=== PATIENT | female | born 1965 | race Caucasian/White ===

== ENCOUNTER → 2019-12-06 12:49 | Outpatient (CLI) | payer OTHER, SELFPAY ==
--- NOTE | 2019-12-06 12:56 | US_ITS ---
PROCEDURE: Ultrasound guided paracentesis. DATE OF EXAMINATION: December 06, 2019. INDICATION: Female, 54 years old. Ascites. PHYSICIAN: Fab Hankins M.D. TECHNIQUE: The risks, benefits, and alternatives to the procedure were explained to the patient. The specific risks of bleeding, infection, and damage to bowel were detailed and accepted. Witnessed informed consent was obtained. The abdomen was ultrasonographically surveyed. An appropriate pocket of fluid was identified at the right lower quadrant. The skin were cleaned and prepped in the usual sterile fashion. Using ultrasound guidance, the peritoneal cavity was accessed with a 5-Niuean paracentesis needle/catheter system. The trocar was removed. A total of 3750 ml of syd-colored fluid were removed from the peritoneal cavity. The catheter was removed and a sterile dressing was applied. The procedure was well tolerated. US/Paracentesis with US IMPRESSION: Ultrasound guided paracentesis. Electronically Signed: Fab Hankins, at 14:50 EST , Service support ,
[2019-12-06 13:32] LABS: International Normalized Ratio 1.3; Platelet Count 222 K/mm3 (150-450)
[2019-12-06 13:33] LABS: Partial Thromboplast Time 35.7 Seconds (24.1-36.2)
[2019-12-06 13:52] VITALS: BP 102/58; BP 103/72; PULSE 102; PULSE 98; PULSE 99; RESP 18; TEMP 36.9; TEMP 37; O2SAT 96; O2SAT 99
== END ==
PROVIDERS: PCP Nurse Practitioner; Referring Provider Internal Medicine Gastroenterology; Visit Provider Internal Medicine Gastroenterology
DX: R18.8 Other ascites (principal); K74.0 Hepatic fibrosis; K74.60 Unspecified cirrhosis of liver
CPT/HCPCS: 36415; 49083; 85049; 85610; 85730

== ENCOUNTER → 2019-12-28 12:02 | Outpatient (CLI) | payer OTHER, SELFPAY ==
--- NOTE | 2019-12-28 12:12 | US_ITS ---
PROCEDURE: Ultrasound guided paracentesis. DATE OF EXAMINATION: December 28, 2019.. INDICATION: Female, 54 years old. Ascites. PHYSICIAN: Fab Hankins M.D. TECHNIQUE: The risks, benefits, and alternatives to the procedure were explained to the patient. The specific risks of bleeding, infection, and damage to bowel were detailed and accepted. Witnessed informed consent was obtained. The abdomen was ultrasonographically surveyed. An appropriate pocket of fluid was identified at the right lower quadrant. The skin were cleaned and prepped in the usual sterile fashion. Using ultrasound guidance, the peritoneal cavity was accessed with a 5-Portuguese paracentesis needle/catheter system. The trocar was removed. A total of 4050 ml of yellow fluid were removed from the peritoneal cavity. The catheter was removed and a sterile dressing was applied. The procedure was well tolerated. US/Paracentesis with US IMPRESSION: Ultrasound guided paracentesis. Electronically Signed: Fab Hankins, at 13:15 EDT , Service support ,
[2019-12-28 12:45] VITALS: BP 115/7; BP 117/72; PULSE 105; PULSE 106; RESP 16; TEMP 37.1; O2SAT 97
== END ==
PROVIDERS: PCP Nurse Practitioner Primary Care; Referring Provider Internal Medicine Gastroenterology; Visit Provider Internal Medicine Gastroenterology
DX: R18.8 Other ascites (principal); K74.0 Hepatic fibrosis; K74.60 Unspecified cirrhosis of liver
CPT/HCPCS: 49083

== ENCOUNTER → 2020-01-07 13:42 | Outpatient (CLI) | payer OTHER, SELFPAY ==
--- NOTE | 2020-01-07 13:45 | US_ITS ---
PROCEDURE: Ultrasound guided paracentesis. DATE OF EXAMINATION: January 07, 2020. INDICATION: Female, 54 years old. Ascites. PHYSICIAN: Fab Hankins M.D. TECHNIQUE: The risks, benefits, and alternatives to the procedure were explained to the patient. The specific risks of bleeding, infection, and damage to bowel were detailed and accepted. Witnessed informed consent was obtained. The abdomen was ultrasonographically surveyed. An appropriate pocket of fluid was identified at the right lower quadrant. The skin were cleaned and prepped in the usual sterile fashion. Using ultrasound guidance, the peritoneal cavity was accessed with a 5-Khmer paracentesis needle/catheter system. The trocar was removed. A total of 3650 ml of syd-colored fluid were removed from the peritoneal cavity. The catheter was removed and a sterile dressing was applied. The procedure was well tolerated. US/Paracentesis with US IMPRESSION: Ultrasound guided paracentesis. Electronically Signed: Fab Hankisn, at 15:00 EDT , Service support ,
[2020-01-07 14:45] VITALS: BP 107/66; BP 112/67; BP 112/69; PULSE 107; PULSE 96; RESP 16; TEMP 37.6; O2SAT 100; O2SAT 95
== END ==
PROVIDERS: PCP Nurse Practitioner Primary Care; Referring Provider Internal Medicine Gastroenterology; Visit Provider Internal Medicine Gastroenterology
DX: K74.60 Unspecified cirrhosis of liver (principal); R18.8 Other ascites
CPT/HCPCS: 49083

== ENCOUNTER → 2020-01-28 14:23 | Outpatient (CLI) | payer OTHER, SELFPAY ==
--- NOTE | 2020-01-28 14:26 | US_ITS ---
PROCEDURE: Ultrasound guided paracentesis. DATE OF EXAMINATION: January 28, 2020.. INDICATION: Female, 54 years old. Ascites. PHYSICIAN: Fab Hankins M.D. TECHNIQUE: The risks, benefits, and alternatives to the procedure were explained to the patient. The specific risks of bleeding, infection, and damage to bowel were detailed and accepted. Witnessed informed consent was obtained. The abdomen was ultrasonographically surveyed. An appropriate pocket of fluid was identified at the right lower quadrant. The skin were cleaned and prepped in the usual sterile fashion. Using ultrasound guidance, the peritoneal cavity was accessed with a 5-Irish paracentesis needle/catheter system. The trocar was removed. A total of 5400 ml of syd-colored fluid were removed from the peritoneal cavity. The catheter was removed and a sterile dressing was applied. The procedure was well tolerated. US/Paracentesis with US IMPRESSION: Ultrasound guided paracentesis. Electronically Signed: Fab Hankins, at 15:35 EDT , Service support ,
[2020-01-28 14:50] VITALS: BP 110/70; BP 112/71; PULSE 100; PULSE 96; RESP 14; RESP 16; O2SAT 95; O2SAT 98
== END ==
PROVIDERS: PCP Nurse Practitioner Primary Care; Referring Provider Internal Medicine Gastroenterology; Visit Provider Internal Medicine Gastroenterology
DX: R18.8 Other ascites (principal); K74.60 Unspecified cirrhosis of liver
CPT/HCPCS: 49083

== ENCOUNTER → 2020-02-18 13:45 | Outpatient (CLI) | payer OTHER, SELFPAY ==
--- NOTE | 2020-02-18 13:48 | US_ITS ---
PROCEDURE: Ultrasound guided paracentesis. DATE OF EXAMINATION: February 18, 2020. INDICATION: Female, 54 years old. Ascites. PHYSICIAN: Fab Hankins M.D. TECHNIQUE: The risks, benefits, and alternatives to the procedure were explained to the patient. The specific risks of bleeding, infection, and damage to bowel were detailed and accepted. Witnessed informed consent was obtained. The abdomen was ultrasonographically surveyed. An appropriate pocket of fluid was identified at the right lower quadrant. The skin were cleaned and prepped in the usual sterile fashion. Using ultrasound guidance, the peritoneal cavity was accessed with a 5-Turkish paracentesis needle/catheter system. The trocar was removed. A total of 6950 ml of syd-colored fluid were removed from the peritoneal cavity. The catheter was removed and a sterile dressing was applied. The procedure was well tolerated. US/Paracentesis with US IMPRESSION: Ultrasound guided paracentesis. Electronically Signed: Fab Hankins, at 15:35 EDT , Service support ,
[2020-02-18 14:39] VITALS: BP 111/64; BP 120/64; BP 121/66; BP 124/66; PULSE 104; PULSE 96; PULSE 97; PULSE 98; RESP 16; RESP 18; TEMP 36.7; O2SAT 97; O2SAT 98
== END ==
PROVIDERS: PCP Nurse Practitioner Primary Care; Referring Provider Internal Medicine Gastroenterology; Visit Provider Internal Medicine Gastroenterology
DX: R18.8 Other ascites (principal)
CPT/HCPCS: 49083

== ENCOUNTER → 2020-03-07 14:07 | Outpatient (CLI) | payer OTHER, SELFPAY ==
--- NOTE | 2020-03-07 14:19 | US_ITS ---
PROCEDURE: ULTRASOUND GUIDED PARACENTESIS CLINICAL HISTORY: Female, 54 years old. ASCITES CONSENT: The risks, benefits and alternatives to the procedure were explained to the patient, and the patient agreed to the procedure and signed the consent. 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 PROCEDURE/TECHNIQUE: The risks, benefits, and alternatives to the procedure were explained to patient, and the patient agreed to the procedure and signed a consent form for the procedure. TECHNIQUE: Under the ultrasound guidance using sterile technique and after infiltration of the skin and subcutaneous soft tissues with 10 mL of lidocaine 1% a 5 Uzbek drainage catheter is introduced in the lower part of the abdomen. 6350 mL of fluid were removed sample sent to lab for evaluation. The patient tolerated the procedure there was no immediate complication. FINDINGS: FLUID PRE-PROCEDURE There is posterior enhancement. The findings appear anechoic. There is no loculation. FLUID POST-PROCEDURE Amount of fluid drained: 6350 ml. US/Paracentesis with US IMPRESSION: Successful ultrasound-guided paracentesis. Electronically Signed: Rigo Ann, at 11:15 EDT Tel , Service support ,
[2020-03-07 14:46] VITALS: BP 103/61; BP 110/61; BP 112/63; BP 112/68; BP 113/65; BP 114/63; BP 125/72; PULSE 102; PULSE 104; PULSE 92; PULSE 93; PULSE 95; PULSE 97; RESP 16; RESP 18; TEMP 36.8; O2SAT 95; O2SAT 96; O2SAT 97
== END ==
PROVIDERS: PCP Nurse Practitioner Primary Care; Referring Provider Internal Medicine Gastroenterology; Visit Provider Internal Medicine Gastroenterology
DX: R18.8 Other ascites (principal); K74.60 Unspecified cirrhosis of liver
CPT/HCPCS: 49083

== ENCOUNTER → 2020-03-20 13:30 | Outpatient (CLI) | payer OTHER, SELFPAY ==
--- NOTE | 2020-03-20 13:34 | US_ITS ---
PROCEDURE: Ultrasound guided paracentesis. DATE OF EXAMINATION: March 20, 2020. INDICATION: Female, 54 years old. Ascites. PHYSICIAN: Fab Hankins M.D. TECHNIQUE: The risks, benefits, and alternatives to the procedure were explained to the patient. The specific risks of bleeding, infection, and damage to bowel were detailed and accepted. Witnessed informed consent was obtained. The abdomen was ultrasonographically surveyed. An appropriate pocket of fluid was identified at the right lower quadrant. The skin were cleaned and prepped in the usual sterile fashion. Using ultrasound guidance, the peritoneal cavity was accessed with a 5-Angolan paracentesis needle/catheter system. The trocar was removed. A total of 5800 ml of syd colored fluid were removed from the peritoneal cavity. The catheter was removed and a sterile dressing was applied. The procedure was well tolerated. US/Paracentesis with US IMPRESSION: Ultrasound guided paracentesis. Electronically Signed: Fab Hankins, at 15:15 EDT , Service support ,
[2020-03-20 14:23] VITALS: BP 95/59; PULSE 94; RESP 14; O2SAT 99
== END ==
PROVIDERS: PCP Nurse Practitioner Primary Care; Referring Provider Internal Medicine Gastroenterology; Visit Provider Internal Medicine Gastroenterology
DX: K74.60 Unspecified cirrhosis of liver (principal)
CPT/HCPCS: 49083

== ENCOUNTER → 2020-03-31 10:23 | Outpatient (CLI) | payer OTHER, SELFPAY ==
--- NOTE | 2020-03-31 10:31 | US_ITS ---
PROCEDURE: Ultrasound guided paracentesis. DATE OF EXAMINATION: March 31, 2020. INDICATION: Female, 54 years old. Ascites. PHYSICIAN: Fab Hankins M.D. TECHNIQUE: The risks, benefits, and alternatives to the procedure were explained to the patient. The specific risks of bleeding, infection, and damage to bowel were detailed and accepted. Witnessed informed consent was obtained. The abdomen was ultrasonographically surveyed. An appropriate pocket of fluid was identified at the left lower quadrant. The skin were cleaned and prepped in the usual sterile fashion. Using ultrasound guidance, the peritoneal cavity was accessed with a 5-Kittitian paracentesis needle/catheter system. The trocar was removed. A total of 8400 ml of syd-colored fluid were removed from the peritoneal cavity. The catheter was removed and a sterile dressing was applied. The procedure was well tolerated. US/Paracentesis with US IMPRESSION: Ultrasound guided paracentesis. Electronically Signed: Fab Hnakins, at 12:29 EDT , Service support ,
[2020-03-31 10:35] VITALS: BP 100/65; BP 103/65; BP 113/71; PULSE 10; PULSE 104; PULSE 97; RESP 16; TEMP 36.9; O2SAT 92; O2SAT 93; O2SAT 94
== END ==
PROVIDERS: PCP Nurse Practitioner Primary Care; Referring Provider Internal Medicine Gastroenterology; Visit Provider Internal Medicine Gastroenterology
DX: K74.60 Unspecified cirrhosis of liver (principal); R18.8 Other ascites
CPT/HCPCS: 49083

== ENCOUNTER → 2020-04-10 08:33 | Outpatient (CLI) | payer OTHER, SELFPAY ==
--- NOTE | 2020-04-10 08:36 | US_ITS ---
PROCEDURE: ULTRASOUND GUIDED PARACENTESIS CLINICAL HISTORY: Female, 54 years old. ASCITES CONSENT: Informed consent obtained Time-Out Called: Yes. Consent form signed: Yes. PT-PTT Levels Checked: Yes. SEDATION: Local sedation with 2% Xylocaine TECHNIQUE: Sonographically guided FINDINGS: FLUID PRE-PROCEDURE There is posterior enhancement. The findings appear anechoic. There is no loculation. FLUID POST-PROCEDURE Amount of fluid drained: 7650 ml of straw-colored serous fluid. There remains a small amount of residual ascites after paracentesis Patient tolerated the procedure well with no immediate complications US/Paracentesis with US IMPRESSION: Successful sonographically guided large volume paracentesis removing 7650 mL from the peritoneal cavity Electronically Signed: Stephen Santiago MD at 10:07 EDT , Service support ,
[2020-04-10 09:00] VITALS: BP 103/61; BP 105/74; BP 109/62; PULSE 105; PULSE 107; PULSE 114; RESP 14; RESP 16; TEMP 37.1; O2SAT 96; O2SAT 97; O2SAT 98
== END ==
PROVIDERS: PCP Nurse Practitioner Primary Care; Referring Provider Internal Medicine Gastroenterology; Visit Provider Internal Medicine Gastroenterology
DX: R18.8 Other ascites (principal)
CPT/HCPCS: 49083

== ENCOUNTER → 2020-04-17 12:22 | Outpatient (CLI) | payer OTHER, SELFPAY ==
--- NOTE | 2020-04-17 12:23 | US_ITS ---
PROCEDURE: Ultrasound guided paracentesis. DATE OF EXAMINATION: April 17, 2020. INDICATION: Female, 54 years old. Ascites. PHYSICIAN: Fab Hankins M.D. TECHNIQUE: The risks, benefits, and alternatives to the procedure were explained to the patient. The specific risks of bleeding, infection, and damage to bowel were detailed and accepted. Witnessed informed consent was obtained. The abdomen was ultrasonographically surveyed. An appropriate pocket of fluid was identified at the right lower quadrant. The skin were cleaned and prepped in the usual sterile fashion. Using ultrasound guidance, the peritoneal cavity was accessed with a 5-Mauritian paracentesis needle/catheter system. The trocar was removed. A total of 6850 ml of syd-colored fluid were removed from the peritoneal cavity. The catheter was removed and a sterile dressing was applied. The procedure was well tolerated. US/Paracentesis with US IMPRESSION: Ultrasound guided paracentesis. Electronically Signed: Fab Hankins, at 14:10 EDT , Service support ,
[2020-04-17 12:45] VITALS: BP 90/51; BP 91/56; BP 99/62; PULSE 102; PULSE 107; PULSE 109; RESP 16; RESP 18; TEMP 37.1; O2SAT 99
== END ==
PROVIDERS: PCP Nurse Practitioner Primary Care; Referring Provider Internal Medicine Gastroenterology; Visit Provider Internal Medicine Gastroenterology
DX: K74.60 Unspecified cirrhosis of liver (principal); R18.8 Other ascites
CPT/HCPCS: 49083

== ENCOUNTER → 2020-04-24 12:27 | Outpatient (CLI) | payer OTHER, SELFPAY ==
--- NOTE | 2020-04-24 12:28 | US_ITS ---
PROCEDURE: Ultrasound guided paracentesis. DATE OF EXAMINATION: April 24, 2020. INDICATION: Female, 54 years old. Ascites. PHYSICIAN: Fab Hankins M.D. TECHNIQUE: The risks, benefits, and alternatives to the procedure were explained to the patient. The specific risks of bleeding, infection, and damage to bowel were detailed and accepted. Witnessed informed consent was obtained. The abdomen was ultrasonographically surveyed. An appropriate pocket of fluid was identified at the right lower quadrant. The skin were cleaned and prepped in the usual sterile fashion. Using ultrasound guidance, the peritoneal cavity was accessed with a 5-Turkmen paracentesis needle/catheter system. The trocar was removed. A total of 5600 ml of syd-colored fluid were removed from the peritoneal cavity. The catheter was removed and a sterile dressing was applied. The procedure was well tolerated. US/Paracentesis with US IMPRESSION: Ultrasound guided paracentesis. Electronically Signed: Fab Hankins, at 13:48 EDT , Service support ,
[2020-04-24 12:39] VITALS: BP 100/60; BP 101/63; BP 109/57; BP 91/50; PULSE 102; PULSE 94; PULSE 97; PULSE 99; RESP 18; TEMP 36.6; TEMP 36.9; O2SAT 100; O2SAT 95; O2SAT 99
== END ==
PROVIDERS: PCP Nurse Practitioner Primary Care; Referring Provider Internal Medicine Gastroenterology; Visit Provider Internal Medicine Gastroenterology
DX: K74.60 Unspecified cirrhosis of liver (principal); R18.8 Other ascites
CPT/HCPCS: 49083

== ENCOUNTER → 2020-05-01 12:20 | Outpatient (CLI) | payer OTHER, SELFPAY ==
--- NOTE | 2020-05-01 12:25 | US_ITS ---
PROCEDURE: Ultrasound guided paracentesis. DATE OF EXAMINATION: May 01, 2020. INDICATION: Female, 54 years old. Ascites. PHYSICIAN: Fab Hankins M.D. TECHNIQUE: The risks, benefits, and alternatives to the procedure were explained to the patient. The specific risks of bleeding, infection, and damage to bowel were detailed and accepted. Witnessed informed consent was obtained. The abdomen was ultrasonographically surveyed. An appropriate pocket of fluid was identified at the right lower quadrant. The skin were cleaned and prepped in the usual sterile fashion. Using ultrasound guidance, the peritoneal cavity was accessed with a 5-St Lucian paracentesis needle/catheter system. The trocar was removed. A total of 5400 ml of syd-colored fluid were removed from the peritoneal cavity. The catheter was removed and a sterile dressing was applied. The procedure was well tolerated. US/Paracentesis with US IMPRESSION: Ultrasound guided paracentesis. Electronically Signed: Fab Hankins, at 13:31 EDT , Service support ,
[2020-05-01 12:41] VITALS: BP 103/58; BP 113/63; PULSE 97; PULSE 98; RESP 14; TEMP 37.1; O2SAT 98; O2SAT 99
== END ==
PROVIDERS: PCP Nurse Practitioner Primary Care; Referring Provider Internal Medicine Gastroenterology; Visit Provider Internal Medicine Gastroenterology
DX: K74.60 Unspecified cirrhosis of liver (principal); R18.8 Other ascites
CPT/HCPCS: 49083

== ENCOUNTER → 2020-05-08 10:24 | Outpatient (CLI) | payer OTHER, SELFPAY ==
--- NOTE | 2020-05-08 10:27 | US_ITS ---
PROCEDURE: ULTRASOUND GUIDED PARACENTESIS CLINICAL HISTORY: Female, 54 years old. ASCITES CONSENT: Informed consent obtained Time-Out Called: Yes. Consent form signed: Yes. PT-PTT Levels Checked: Yes. SEDATION: Local sedation with 2% Xylocaine TECHNIQUE: Ultrasound guided FINDINGS: FLUID PRE-PROCEDURE There is posterior enhancement. The findings appear anechoic. There is no loculation. After informed consent was obtained, patient was placed in the supine position on the sonographic table, an appropriate site for large volume paracentesis was determined using sonographic guidance. A spot in the right flank was marked. The marked area was then prepped and draped in a sterile manner and 2% Xylocaine was used as local anesthetic. Under sonographic guidance, a 16-gauge drainage catheter was placed into the peritoneal cavity and approximately 4855 mL of straw-colored serous fluid was withdrawn. Patient tolerated the procedure well with no immediate complications. US/Paracentesis with US IMPRESSION: Successful sonographically guided large volume paracentesis Electronically Signed: Stephen Santiago MD at 11:51 EDT , Service support ,
[2020-05-08 10:34] VITALS: BP 102/56; BP 111/61; BP 119/74; BP 97/54; PULSE 101; PULSE 108; PULSE 111; RESP 18; TEMP 37.1; O2SAT 98; O2SAT 99
== END ==
PROVIDERS: PCP Nurse Practitioner Primary Care; Referring Provider Internal Medicine Gastroenterology; Visit Provider Internal Medicine Gastroenterology
DX: K74.60 Unspecified cirrhosis of liver (principal); R18.8 Other ascites
CPT/HCPCS: 49083

== ENCOUNTER → 2020-05-15 12:27 | Outpatient (CLI) | payer OTHER, SELFPAY ==
--- NOTE | 2020-05-15 12:29 | US_ITS ---
PROCEDURE: Ultrasound guided paracentesis. DATE OF EXAMINATION: 05-15-20.. INDICATION: Female, 54 years old. Ascites. PHYSICIAN: Fab Hankins M.D. TECHNIQUE: The risks, benefits, and alternatives to the procedure were explained to the patient. The specific risks of bleeding, infection, and damage to bowel were detailed and accepted. Witnessed informed consent was obtained. The abdomen was ultrasonographically surveyed. An appropriate pocket of fluid was identified at the right lower quadrant. The skin were cleaned and prepped in the usual sterile fashion. Using ultrasound guidance, the peritoneal cavity was accessed with a 5-Azeri paracentesis needle/catheter system. The trocar was removed. A total of 3150 ml of syd-colored fluid were removed from the peritoneal cavity. The catheter was removed and a sterile dressing was applied. The procedure was well tolerated. US/Paracentesis with US IMPRESSION: Ultrasound guided paracentesis. Electronically Signed: Fab Hankins, at 13:44 EDT , Service support ,
[2020-05-15 12:53] VITALS: BP 104/59; BP 109/60; BP 96/55; PULSE 104; PULSE 105; RESP 18; TEMP 37.3; O2SAT 100; O2SAT 98; O2SAT 99
== END ==
PROVIDERS: PCP Nurse Practitioner Primary Care; Referring Provider Internal Medicine Gastroenterology; Visit Provider Internal Medicine Gastroenterology
DX: K74.60 Unspecified cirrhosis of liver (principal); R18.8 Other ascites
CPT/HCPCS: 49083

== ENCOUNTER → 2020-05-23 12:26 | Outpatient (CLI) | payer OTHER, SELFPAY ==
--- NOTE | 2020-05-23 12:28 | US_ITS ---
PROCEDURE: Ultrasound guided paracentesis. DATE OF EXAMINATION: 05/23/2020. INDICATION: Female, 54 years old. Ascites. PHYSICIAN: Fab Hankins M.D. TECHNIQUE: The risks, benefits, and alternatives to the procedure were explained to the patient. The specific risks of bleeding, infection, and damage to bowel were detailed and accepted. Witnessed informed consent was obtained. The abdomen was ultrasonographically surveyed. An appropriate pocket of fluid was identified at the right lower quadrant. The skin were cleaned and prepped in the usual sterile fashion. Using ultrasound guidance, the peritoneal cavity was accessed with a 5-Eritrean paracentesis needle/catheter system. The trocar was removed. A total of 3250 ml of syd-colored fluid were removed from the peritoneal cavity. The catheter was removed and a sterile dressing was applied. The procedure was well tolerated. US/Paracentesis with US IMPRESSION: Ultrasound guided paracentesis. Electronically Signed: Fab Hankins, at 13:39 EDT , Service support ,
[2020-05-23 12:50] VITALS: BP 100/63; BP 107/58; PULSE 104; RESP 18; O2SAT 97; O2SAT 98
== END ==
PROVIDERS: PCP Nurse Practitioner Primary Care; Referring Provider Internal Medicine Gastroenterology; Visit Provider Internal Medicine Gastroenterology
DX: R18.8 Other ascites (principal); K74.60 Unspecified cirrhosis of liver
CPT/HCPCS: 49083

== ENCOUNTER → 2020-06-06 13:20 | Outpatient (CLI) | payer OTHER, SELFPAY ==
--- NOTE | 2020-06-06 13:23 | US_ITS ---
PROCEDURE: ULTRASOUND GUIDED PARACENTESIS CLINICAL HISTORY: Female, 54 years old. ASCITES CONSENT: The risks, benefits and alternatives to the procedure were explained to the patient, and the patient agreed to the procedure and signed the consent. 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 PROCEDURE/TECHNIQUE: The risks, benefits, and alternatives to the procedure were explained to patient, and the patient agreed to the procedure and signed a consent form for the procedure. TECHNIQUE: Under the ultrasound guidance using sterile technique and after infiltration of the skin and subcutaneous soft tissues with 10 mL of lidocaine 1% a 5 Hebrew drainage catheter is introduced in the lower part of the abdomen. 5600 mL of fluid were removed sample sent to lab for evaluation. The patient tolerated the procedure there was no immediate complication. FINDINGS: FLUID PRE-PROCEDURE There is posterior enhancement. The findings appear anechoic. There is no loculation. FLUID POST-PROCEDURE Amount of fluid drained: 5600 ml. US/Paracentesis with US IMPRESSION: Successful ultrasound-guided paracentesis. Electronically Signed: Rigo Ann, at 17:10 EDT Tel , Service support ,
[2020-06-06 15:32] VITALS: BP 101/60; BP 110/61; BP 110/63; BP 99/65; PULSE 107; PULSE 93; PULSE 94; PULSE 95; RESP 14; O2SAT 94; O2SAT 96; O2SAT 98
== END ==
PROVIDERS: PCP Nurse Practitioner Primary Care; Referring Provider Internal Medicine Gastroenterology; Visit Provider Internal Medicine Gastroenterology
DX: K74.60 Unspecified cirrhosis of liver (principal); R18.8 Other ascites
CPT/HCPCS: 49083

== ENCOUNTER → 2020-06-19 12:32 | Outpatient (CLI) | payer OTHER, SELFPAY ==
--- NOTE | 2020-06-19 12:33 | US_ITS ---
PROCEDURE: Ultrasound guided paracentesis. DATE OF EXAMINATION: 06/19/2020. INDICATION: Female, 54 years old. Ascites. PHYSICIAN: Fab Hankins M.D. TECHNIQUE: The risks, benefits, and alternatives to the procedure were explained to the patient. The specific risks of bleeding, infection, and damage to bowel were detailed and accepted. Witnessed informed consent was obtained. The abdomen was ultrasonographically surveyed. An appropriate pocket of fluid was identified at the right lower quadrant. The skin were cleaned and prepped in the usual sterile fashion. Using ultrasound guidance, the peritoneal cavity was accessed with a 5-Kenyan paracentesis needle/catheter system. The trocar was removed. A total of 4350 ml of syd-colored fluid were removed from the peritoneal cavity. The catheter was removed and a sterile dressing was applied. The procedure was well tolerated. US/Paracentesis with US IMPRESSION: Ultrasound guided paracentesis. Electronically Signed: Fab Hankins, at 14:06 EDT , Service support ,
[2020-06-19 12:50] VITALS: BP 103/66; BP 104/60; BP 94/63; PULSE 92; PULSE 97; RESP 16; RESP 18; TEMP 36.8; O2SAT 98; O2SAT 99
== END ==
PROVIDERS: PCP Nurse Practitioner Primary Care; Referring Provider Internal Medicine Gastroenterology; Visit Provider Internal Medicine Gastroenterology
DX: K74.60 Unspecified cirrhosis of liver (principal); R18.8 Other ascites
CPT/HCPCS: 49083

== ENCOUNTER → 2020-06-30 12:29 | Outpatient (CLI) | payer OTHER, SELFPAY ==
--- NOTE | 2020-06-30 12:32 | US_ITS ---
PROCEDURE: Ultrasound guided paracentesis. DATE OF EXAMINATION: 06/30/2020. INDICATION: Female, 55 years old. Ascites. PHYSICIAN: Fab Hankins M.D. TECHNIQUE: The risks, benefits, and alternatives to the procedure were explained to the patient. The specific risks of bleeding, infection, and damage to bowel were detailed and accepted. Witnessed informed consent was obtained. The abdomen was ultrasonographically surveyed. An appropriate pocket of fluid was identified at the right lower quadrant. The skin were cleaned and prepped in the usual sterile fashion. Using ultrasound guidance, the peritoneal cavity was accessed with a 5-Emirati paracentesis needle/catheter system. The trocar was removed. A total of 5400 ml of syd-colored fluid were removed from the peritoneal cavity. The catheter was removed and a sterile dressing was applied. The procedure was well tolerated. US/Paracentesis with US IMPRESSION: Ultrasound guided paracentesis. Electronically Signed: Fab Hankins, at 15:25 EDT , Service support ,
[2020-06-30 12:41] VITALS: BP 102/55; BP 102/64; BP 104/62; BP 109/63; PULSE 89; PULSE 91; PULSE 95; RESP 18; TEMP 37; O2SAT 100; O2SAT 95; O2SAT 96; O2SAT 98
== END ==
PROVIDERS: PCP Nurse Practitioner Primary Care; Referring Provider Internal Medicine Gastroenterology; Visit Provider Internal Medicine Gastroenterology
DX: R18.8 Other ascites (principal); K74.60 Unspecified cirrhosis of liver
CPT/HCPCS: 49083

== ENCOUNTER → 2020-07-10 13:27 | Outpatient (CLI) | payer OTHER, SELFPAY ==
--- NOTE | 2020-07-10 13:29 | US_ITS ---
PROCEDURE: Ultrasound guided paracentesis. DATE OF EXAMINATION: 07/10/2020. INDICATION: Female, 55 years old. Ascites. PHYSICIAN: Fab Hankins M.D. TECHNIQUE: The risks, benefits, and alternatives to the procedure were explained to the patient. The specific risks of bleeding, infection, and damage to bowel were detailed and accepted. Witnessed informed consent was obtained. The abdomen was ultrasonographically surveyed. An appropriate pocket of fluid was identified at the right lower quadrant. The skin were cleaned and prepped in the usual sterile fashion. Using ultrasound guidance, the peritoneal cavity was accessed with a 5-Nigerian paracentesis needle/catheter system. The trocar was removed. A total of 3600 ml of syd-colored fluid were removed from the peritoneal cavity. The catheter was removed and a sterile dressing was applied. The procedure was well tolerated. US/Paracentesis with US IMPRESSION: Ultrasound guided paracentesis. Electronically Signed: Fab Hankins, at 14:20 EDT , Service support ,
[2020-07-10 14:35] VITALS: BP 104/56; BP 105/60; BP 98/65; PULSE 105; PULSE 92; PULSE 96; RESP 14; RESP 16; O2SAT 98; O2SAT 99
== END ==
PROVIDERS: PCP Nurse Practitioner Primary Care; Referring Provider Internal Medicine Gastroenterology; Visit Provider Internal Medicine Gastroenterology
DX: R18.8 Other ascites (principal); K74.60 Unspecified cirrhosis of liver
CPT/HCPCS: 49083

== ENCOUNTER → 2020-07-25 12:31 | Outpatient (CLI) | payer OTHER, SELFPAY ==
--- NOTE | 2020-07-25 12:32 | US_ITS ---
PROCEDURE: ULTRASOUND GUIDED PARACENTESIS CLINICAL HISTORY: Female, 55 years old. ASCITES CONSENT: The risks, benefits and alternatives to the procedure were explained to the patient, and the patient agreed to the procedure and signed the consent. 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 PROCEDURE/TECHNIQUE: The risks, benefits, and alternatives to the procedure were explained to patient, and the patient agreed to the procedure and signed a consent form for the procedure. TECHNIQUE: Under the ultrasound guidance using sterile technique and after infiltration of the skin and subcutaneous soft tissues with 10 mL of lidocaine 1% a 5 Serbian drainage catheter is introduced in the lower part of the abdomen. 4000 mL of fluid were removed sample sent to lab for evaluation. The patient tolerated the procedure there was no immediate complication. FINDINGS: FLUID PRE-PROCEDURE There is posterior enhancement. The findings appear anechoic. There is no loculation. FLUID POST-PROCEDURE Amount of fluid drained: 4000 ml. US/Paracentesis with US IMPRESSION: Successful ultrasound-guided paracentesis. Electronically Signed: Rigo Ann, at 14:51 EDT Tel , Service support ,
[2020-07-25 12:45] VITALS: BP 107/61; BP 115/62; BP 116/65; PULSE 102; PULSE 105; PULSE 97; RESP 16; TEMP 36.4; O2SAT 99
--- NOTE | 2020-07-31 16:09 | CASEMGMT ---
RN Care Coordination Assessment: Pt is a 55yo female with cirrhosis of the liver with ascites. Pt was met in the radiology ultrasound procedure room s/p paracentesis on 07/25/2020. Pt requested a follow-up phone call for assessment due to her mom waiting in the car for her. Phone call placed pt 07/25 afternoon. The role of the RN CM was explained to patient and assessment completed. Demographics verified. Providers: PCP: Areli Zhou APRN-ORIANA ([facility]) Ship Erector: Dr. Mendoza Hospitalizations and Outpt Visits: Pt has not had any acute inpatient or observation admissions to [facility]. Pt undergoes paracenteses every week to 12 days. Insurance: [employer] w/prescription coverage Pharmacy: [facility] in [place] (Pt does report taking lasix, but full medication list not obtained at this time.) Diet: No salt (avoids Na intake as much as possible). Fluid intake: 3 16oz bottles of water a day plus one Vitamin H20 (20 oz) for a total of 2,040mL/day Current plan: Per Dr. Mendoza's office, Nadege is not a candiate for a TIPS or transplant procedure. Continue with prn paracenteses and follow-up with Kelly. Social Determinants of Health: Health Literacy: Moderate to High. 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 Housing: Pt lives alone in a two story duplex with 5 steps between floors, 5 steps into the garage and 4 steps into the basement where her washer and tunnel drier operator are located. Pt denies any difficulty navigating these steps. Pt states she feels safe in her home. Food: Pt is able to obtain her groceries and prepares her own meals. Social Support: Pt has a mother, daughter, and sister who live close by who can assist as needed. Pt eats meals regularly with her mother as a support to her mother and herself. Transportation: Pt's mother also provides transportation to her paracentesis appointments even though pt states she does have a car and is able to drive herself. Pt states she uses this time to spend with her mom whose spring. 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 She works 38-40 hours a week. Pt states she tolerates this well until she has become too big due to ascites fluid. Pt states she is working with her insurance to resolve some billing issues with the radiologist bills. Nadege states that when a radiologist other than Dr. Hankins conducts the paracentesis she gets a large bill. RAD RNs report pt delays paracenteses as long as possible due to financial implications. Pt denies any concerns except for the radiologist billing issue. Nadege understands and is compliant with her dietary restrictions. NICOLAS LANDIS will continue to follow with patient for future care coordination needs. Will obtain updated medication list and discuss follow-up with Dr. Mendoza. Will monitor pt's ability to continue working and any future implications of not being able to work may create. Gabbie Epstein RN CM
== END ==
PROVIDERS: PCP Nurse Practitioner Primary Care; Referring Provider Internal Medicine Gastroenterology; Visit Provider Internal Medicine Gastroenterology
DX: R18.8 Other ascites (principal); K74.60 Unspecified cirrhosis of liver
CPT/HCPCS: 49083

== ENCOUNTER → 2020-08-04 14:37 | Outpatient (CLI) | payer OTHER, SELFPAY ==
--- NOTE | 2020-08-04 14:39 | US_ITS ---
PROCEDURE: Ultrasound guided paracentesis. DATE OF EXAMINATION: 08/04/2020. INDICATION: Female, 55 years old. Ascites. PHYSICIAN: Fab Hankins M.D. TECHNIQUE: The risks, benefits, and alternatives to the procedure were explained to the patient. The specific risks of bleeding, infection, and damage to bowel were detailed and accepted. Witnessed informed consent was obtained. The abdomen was ultrasonographically surveyed. An appropriate pocket of fluid was identified at the right lower quadrant. The skin were cleaned and prepped in the usual sterile fashion. Using ultrasound guidance, the peritoneal cavity was accessed with a 5-Egyptian paracentesis needle/catheter system. The trocar was removed. A total of 5160 ml of syd-colored fluid were removed from the peritoneal cavity. The catheter was removed and a sterile dressing was applied. The procedure was well tolerated. US/Paracentesis with US IMPRESSION: Ultrasound guided paracentesis. Electronically Signed: Fab Hankins, at 8:21 EDT , Service support ,
[2020-08-04 15:10] VITALS: BP 106/63; BP 107/62; BP 109/61; BP 114/61; PULSE 87; PULSE 91; PULSE 92; RESP 18; TEMP 36.8; O2SAT 100; O2SAT 97; O2SAT 98; O2SAT 99
== END ==
PROVIDERS: PCP Nurse Practitioner Primary Care; Referring Provider Internal Medicine Gastroenterology; Visit Provider Internal Medicine Gastroenterology
DX: R18.8 Other ascites (principal); K74.60 Unspecified cirrhosis of liver
CPT/HCPCS: 49083

== ENCOUNTER → 2020-08-14 14:28 | Outpatient (CLI) | payer OTHER, SELFPAY ==
--- NOTE | 2020-08-14 14:31 | US_ITS ---
PROCEDURE: Ultrasound guided paracentesis. DATE OF EXAMINATION: 08/14/2020. INDICATION: Female, 55 years old. Ascites. PHYSICIAN: Fab Hankins M.D. TECHNIQUE: The risks, benefits, and alternatives to the procedure were explained to the patient. The specific risks of bleeding, infection, and damage to bowel were detailed and accepted. Witnessed informed consent was obtained. The abdomen was ultrasonographically surveyed. An appropriate pocket of fluid was identified at the right lower quadrant. The skin were cleaned and prepped in the usual sterile fashion. Using ultrasound guidance, the peritoneal cavity was accessed with a 5-Namibian paracentesis needle/catheter system. The trocar was removed. A total of 7800 ml of syd-colored fluid were removed from the peritoneal cavity. The catheter was removed and a sterile dressing was applied. The procedure was well tolerated. US/Paracentesis with US IMPRESSION: Ultrasound guided paracentesis. Electronically Signed: Fab Hankins, at 15:48 EDT , Service support ,
[2020-08-14 14:49] VITALS: BP 100/55; BP 107/65; BP 116/60; BP 99/59; PULSE 103; PULSE 104; PULSE 97; RESP 16; RESP 18; TEMP 36.9; O2SAT 98; O2SAT 99
--- NOTE | 2020-08-14 15:44 | NURSING ---
During paracentesis pt states that she asked Dr. Mendoza about getting an Albumin infusion after her paracentesis. According to the patient Dr. Mendoza stated he's given the hospital orders for it when patient's b/p is too low. NICOLAS Jordan stated that he has given those orders in the past when he has patient's who typically get albumin after large volume paracentesis who may not have had the large volume during a time when said patient's b/p was low. NICOLAS Jordan stated that albumin infusions after large volume paracentesis (typically greater than 5L of fluid removed) are the standard of care for most hepatologists and gastroenterologists who have patient's coming to [facility]. NICOLAS Jordan educated the patient on albumin replacement and pt states she will ask Dr. Mendoza again in September during her next appointment.
--- NOTE | 2020-08-23 13:37 | CASEMGMT ---
Addendum entered by Francesco Man 08/23/20 15:45: Call placed to Dr Mendoza's and the following things were discussed: *Medication: Per medication list received from Dr Mendoza's office last week it was unclear what current dose of Aldactone pt is taking. Per Dr Mendoza, pt is currently on Aldactone 200 mg po daily. This was updated in [facility] at this time. (Also, per medication list and visit note w/Dr Mendoza on 08/14, Lasix was discontinued and Bumex started d/t pt c/o Lasix causing itching rash. This was also updated in [facility] at this time). *Albumin infusion: Discussed with Dr Mendoza that pt inquiring about getting Albumin infusions after her paracentesis. He states he will order this if pt is symptomatic or if her BP is low, but states does not want to give standing order just for large volume removal. He states, I don't think that is necessary unless she is symptomatic and they can call me from radiology to inform me if this happens. *TIPS candidacy: Dr Mendoza states the initial referral to [facility], pt was not a candidate for TIPS d/t portal veins and her anatomy. He plans to send pt for another referral for a second opinion to a physician [facility] and will have the office try to have this scheduled in the next few weeks. He states pt is not at the stage to need liver transplant yet. *Adding Machine Operator: Dr Mendoza states he has not referred pt to a machine clerical verifier yet d/t she is not at the stage to need liver transplant yet. He was made aware machine clerical verifier will see pt's to manage paracentesis in the earlier stages, even if their disease process is not at the stage of needing a transplant. He states if pt would like to see a machine clerical verifier, he has no objection to that. *Labs: Pt has labs drawn every 7-10 days to check her kidney function and Na+ levels. Dr Mendoza states there are no other concerns at this time for NICOLAS LANDIS to assist with, but he voiced appreciation for the care coordination and follow-up with pt. Alexus ESCOTO RN, CM Original Note: NICOLAS LANDIS Care Coordination Follow-up: Attempted to call pt X 2 for follow-up. No answer and message came on stating mailbox is full. Unable to leave message for pt to return call. RN CM to f/u at a later time. Alexus ESCOTO RN CM
== END ==
PROVIDERS: PCP Nurse Practitioner Primary Care; Referring Provider Internal Medicine Gastroenterology; Visit Provider Internal Medicine Gastroenterology
DX: R18.8 Other ascites (principal); K74.60 Unspecified cirrhosis of liver
CPT/HCPCS: 49083

== ENCOUNTER → 2020-08-24 12:24 | Outpatient (CLI) | payer OTHER, SELFPAY ==
--- NOTE | 2020-08-24 12:26 | US_ITS ---
PROCEDURE: Ultrasound guided paracentesis. DATE OF EXAMINATION: 08/24/2020. INDICATION: Female, 55 years old. Ascites. PHYSICIAN: Fab Hankins M.D. TECHNIQUE: The risks, benefits, and alternatives to the procedure were explained to the patient. The specific risks of bleeding, infection, and damage to bowel were detailed and accepted. Witnessed informed consent was obtained. The abdomen was ultrasonographically surveyed. An appropriate pocket of fluid was identified at the right lower quadrant. The skin were cleaned and prepped in the usual sterile fashion. Using ultrasound guidance, the peritoneal cavity was accessed with a 5-British paracentesis needle/catheter system. The trocar was removed. A total of 6500 ml of were removed from the peritoneal cavity. The catheter was removed and a sterile dressing was applied. The procedure was well tolerated. US/Paracentesis with US IMPRESSION: Ultrasound guided paracentesis. Electronically Signed: Fab Hankins, at 13:58 EST , Service support ,
[2020-08-24 12:42] VITALS: BP 104/63; BP 110/53; BP 111/65; BP 114/64; PULSE 89; PULSE 94; PULSE 95; PULSE 97; RESP 14; RESP 16; TEMP 36.8; O2SAT 100; O2SAT 99
== END ==
PROVIDERS: PCP Nurse Practitioner Primary Care; Referring Provider Internal Medicine Gastroenterology; Visit Provider Internal Medicine Gastroenterology
DX: R18.8 Other ascites (principal); K74.60 Unspecified cirrhosis of liver
CPT/HCPCS: 49083

== ENCOUNTER → 2020-09-05 14:25 | Outpatient (CLI) | payer OTHER, SELFPAY ==
--- NOTE | 2020-09-05 14:26 | US_ITS ---
PROCEDURE: Ultrasound guided paracentesis. DATE OF EXAMINATION: 09/05/2020. INDICATION: Female, 55 years old. Ascites. PHYSICIAN: Fab Hankins M.D. TECHNIQUE: The risks, benefits, and alternatives to the procedure were explained to the patient. The specific risks of bleeding, infection, and damage to bowel were detailed and accepted. Witnessed informed consent was obtained. The abdomen was ultrasonographically surveyed. An appropriate pocket of fluid was identified at the right lower quadrant. The skin were cleaned and prepped in the usual sterile fashion. Using ultrasound guidance, the peritoneal cavity was accessed with a 5-Sri Lankan paracentesis needle/catheter system. The trocar was removed. A total of 7750 ml of syd-colored fluid were removed from the peritoneal cavity. The catheter was removed and a sterile dressing was applied. The procedure was well tolerated. US/Paracentesis with US IMPRESSION: Ultrasound guided paracentesis. Electronically Signed: Fab Hankins, at 15:58 EST , Service support ,
[2020-09-05 14:30] VITALS: BP 100/58; BP 102/59; BP 107/68; BP 91/58; PULSE 86; PULSE 90; PULSE 91; PULSE 94; RESP 16; RESP 18; TEMP 36.6; O2SAT 97; O2SAT 98
--- NOTE | 2020-09-05 16:01 | CASEMGMT ---
RN Care Coordination Follow-up: This RN CM met with patient in the ultrasound room during routine paracentesis. Pt states she has been getting pretty uncomfortable prior to her appointment which has decreased her appetite. Discussed her follow-up appointment with Dr. Mendoza. Pt states she understands she was being referred to [place] for surgical evaluation but that she has not heard back regarding any appointments. Pt states she discussed a referral to a armature winder repair helper with Dr. Mendoza and understood that he was ok with this. Pt states she sees her PCP yearly and when acutely ill. States she has a good relationship with her PCP and feels her PCP would be a good resource for referrals if needed. Reviewed in-network hepatology practices with [facility] with patient. Pt provided this RN CM permission to follow-up with Dr. Mendoza's office and her PCP to coordinate further follow-up and evaluation. Pt states she has two new job positions. 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 Pt states she otherwise has been doing well and does not have other concerns. Call placed to Dr. Mendoza's office. This RN CM spoke with his nurse Priscilla who states a referral was faxed to Dr. Guerra's office on 08/28. Priscilla explained that the process is for them to fax the medical record to Dr. Guerra's office who then reviews the information. His office then contacts either the patient to set up an appointment for further evaluation or Dr. Mendoza's office. Priscilla suggested that the patient contact Dr. Mendoza's office next week if she has not hear anything from either office. Priscilla offered for this RN CM to follow-up with her next prior to 1pm also. Noted Dr. Guerra is a part of the health system. On review of in-network providers on the [facility] website, was not listed. Call placed to [facility] and confirmed that Dr. Guerra is not in-network nor is the health system. [facility] is also not an in-network provider. A request can be submitted if necessary. Will await response from referral and then further investigate need to pursue authorization for an [id number] provider. Noted Dr. Guerra is a armature winder repair helper. Will pause on referral to [facility] hepatolgists until response is received from Dr. Guerra. Call placed to patient at home and provided her the above information. Pt expressed understanding. Will continue to follow as noted above. Gabbie Epstein RN CM
== END ==
PROVIDERS: PCP Nurse Practitioner Primary Care; Referring Provider Internal Medicine Gastroenterology; Visit Provider Internal Medicine Gastroenterology
DX: K74.60 Unspecified cirrhosis of liver (principal); R18.8 Other ascites
CPT/HCPCS: 49083

== ENCOUNTER → 2020-09-13 12:29 | Outpatient (CLI) | payer OTHER, SELFPAY ==
--- NOTE | 2020-09-13 12:30 | US_ITS ---
PROCEDURE: ULTRASOUND GUIDED PARACENTESIS CLINICAL HISTORY: Female, 55 years old. ASCITES CONSENT: Yes Time-Out Called: Yes. Consent form signed: Yes. PT-PTT Levels Checked: Yes. SEDATION: No TECHNIQUE: A pocket of ascites is noted in the pelvis and the skin site was marked and sterilely prepped in the usual fashion. After this a 5 Turkish catheter was inserted into the ascites. FINDINGS: FLUID PRE-PROCEDURE 4500 cc of ascites was aspirated from the abdominal cavity. This ascites was pale yellow fluid. There is no loculation. FLUID POST-PROCEDURE Amount of fluid drained: 4500 ml. Residual image volume: 10 ml. US/Paracentesis with US IMPRESSION: 4500 cc of pale yellow ascites was aspirated from the abdominal cavity. Electronically Signed: John Coburn, at 10:12 EST Tel , Service support ,
[2020-09-13 12:45] VITALS: BP 101/57; BP 102/56; BP 110/60; BP 96/64; PULSE 100; PULSE 83; PULSE 92; PULSE 94; RESP 18; TEMP 36.8; O2SAT 98
== END ==
PROVIDERS: PCP Nurse Practitioner Primary Care; Referring Provider Internal Medicine Gastroenterology; Visit Provider Internal Medicine Gastroenterology
DX: R18.8 Other ascites (principal); K74.60 Unspecified cirrhosis of liver
CPT/HCPCS: 49083

== ENCOUNTER → 2020-09-26 14:29 | Outpatient (CLI) | payer OTHER, SELFPAY ==
--- NOTE | 2020-09-26 14:32 | US_ITS ---
PROCEDURE: Ultrasound guided paracentesis. DATE OF EXAMINATION: 09/26/2020. INDICATION: Female, 55 years old. Ascites. PHYSICIAN: Fab Hankins M.D. TECHNIQUE: The risks, benefits, and alternatives to the procedure were explained to the patient. The specific risks of bleeding, infection, and damage to bowel were detailed and accepted. Witnessed informed consent was obtained. The abdomen was ultrasonographically surveyed. An appropriate pocket of fluid was identified at the right lower quadrant. The skin were cleaned and prepped in the usual sterile fashion. Using ultrasound guidance, the peritoneal cavity was accessed with a 5-Kuwaiti paracentesis needle/catheter system. The trocar was removed. A total of 6750 ml of syd-colored fluid were removed from the peritoneal cavity. The catheter was removed and a sterile dressing was applied. The procedure was well tolerated. US/Paracentesis with US IMPRESSION: Ultrasound guided paracentesis. Electronically Signed: Fab Hankins, at 15:32 EST , Service support ,
[2020-09-26 14:35] VITALS: BP 112/55; BP 112/69; BP 117/64; BP 119/73; PULSE 103; PULSE 104; PULSE 96; PULSE 99; RESP 16; RESP 18; TEMP 36.8; O2SAT 100; O2SAT 99
--- NOTE | 2020-10-02 14:49 | CASEMGMT ---
RN Care Coordination Follow-up: Late entry for 09/26/2020: This RN CM visited pt at bedside during paracentesis. Pt states she has not received any response from Dr. Guerra's office or Dr. Mendoza's office regarding her referral to Dr. Guerra. Pt expressed a desire to receive a second opinion from a precision crop manager. If Dr. Guerra's opinion was going to require a visit or bill, she prefers to see an in-records specialist and has selected Dr. Curiel from [facility] in [place]. Pt provided this RN CM permission to contact her PCP Areli Zhou NP to facilitate referral and also begin FMLA paperwork. She is finding it increasingly difficult to navigate stairs especially when she is just prior to her paracentesis appointment and would like the security of having this paperwork completed to facilitate appointments, etc. Late entry for 09/27/2020: This RN CM called Dr. Guerra's office to enquire on status of referral. Per Dr. Guerra's field secretary Rosalinda, they have not received the patient's medical record for review. Per email sent to Dr. Guerra by Rosalinda, a review of the patient's record and an opinion by Dr. Guerra could be performed without an appointment or cost to the patient. This RN CM phoned Dr. Mendoza's office to ask for records to be resubmitted to Dr. Guerra's office. Dr. Mendoza's nurse was unavailable so message left requesting a return call. 10/02/2020 A return call from Dr. Mendoza's nurse has not been received as of this date and time. Attempted to call Dr. Mendoza's office but busy signal received. Will reattempt. This RN CM phoned Areli Zhou's office and per front desk coordinator, this RN CM needs to speak with Areli Zhou's nurse to relay need and further plan referral to Dr. Curiel. Message left with nurse requesting a return call. Will continue to attempt to contact Dr. Mendoza's office to facilitate record referral for Dr. Guerra's review and collaborate with Areli Zhou's nurse regarding second opinion with Dr. Curiel and FMLA paperwork. Gabbie Epstein RN BOBY
--- NOTE | 2020-10-04 14:40 | CASEMGMT ---
RN Care Coordination Follow-up: Late entry for 10/03/2020: Message left with Dr. Mendoza's bias cutting machine operator for the nurse to call this RN CM. 10/04/2020: A return call was not received from Dr. Mendoza's nurse. Call placed to his office on this date. Project Intern attempted to connect this RN CM with the nurse but the call was not accepted. Explained to the bias cutting machine operator that Dr. Guerra's office did not receive the patient's medical record for review. The bias cutting machine operator verbally conveyed this to the nurse while this RN CM was on the line. Fax number and Rosalinda's name (Dr. Guerra's bilingual secretary) were provided to the bias cutting machine operator. Project Intern states they will resubmit the medical record. Return call/voicemail received on 10/03 pm from Areli Zhou's nurse. Attempted to call nurse on this date and message left requesting a return call. Will continue to coordinate referrals for second opinions for patient. Gabbie Epstein, RN CM
--- NOTE | 2020-10-04 15:27 | CASEMGMT ---
RN Care Coordination Follow-up: Return call received from Melodie at Areli Zhou's office. Relayed pt's desire for a second opinion by Dr. Curiel at [facility] in [place]. Relayed that Dr. Guerra that is reviewing her records at is not in network. Also relayed increasing difficulty pt is having at work with mobility especially when ascites is greatest. Asked if Areli would be willing to complete FMLA paperwork to assist with work absences that may be related to these physical difficulties as well as appointments, etc. Melodie states that she will discuss both of these concerns with Areli and will facilitate the referral to Dr. Curiel. Gabbie Epstein RN CM
== END ==
PROVIDERS: PCP Nurse Practitioner Primary Care; Visit Provider Internal Medicine Gastroenterology
DX: R18.8 Other ascites (principal); K74.60 Unspecified cirrhosis of liver
CPT/HCPCS: 49083

== ENCOUNTER → 2020-10-10 14:29 | Outpatient (CLI) | payer OTHER, SELFPAY ==
--- NOTE | 2020-10-10 14:32 | US_ITS ---
PROCEDURE: Ultrasound guided paracentesis. DATE OF EXAMINATION: 10/10/2020. INDICATION: Female, 55 years old. Ascites. PHYSICIAN: Fab Hankins M.D. TECHNIQUE: The risks, benefits, and alternatives to the procedure were explained to the patient. The specific risks of bleeding, infection, and damage to bowel were detailed and accepted. Witnessed informed consent was obtained. The abdomen was ultrasonographically surveyed. An appropriate pocket of fluid was identified at the right lower quadrant. The skin were cleaned and prepped in the usual sterile fashion. Using ultrasound guidance, the peritoneal cavity was accessed with a 5-Surinamese paracentesis needle/catheter system. The trocar was removed. A total of 6050 ml of syd-colored fluid were removed from the peritoneal cavity. The catheter was removed and a sterile dressing was applied. The procedure was well tolerated. US/Paracentesis with US IMPRESSION: Ultrasound guided paracentesis. Electronically Signed: Fab Hankins, at 15:50 EST , Service support ,
[2020-10-10 14:47] VITALS: BP 103/60; BP 105/54; BP 114/58; PULSE 100; PULSE 101; PULSE 105; RESP 18; TEMP 37.1; O2SAT 100
--- NOTE | 2020-10-10 15:19 | CASEMGMT ---
RN Care Coordination Follow-up: This RN CM met with patient [id number] in the ultrasound procedure room during paracentesis procedure. The following was discussed: PCP Collaboration: Pt states she met with her PCP Areli Zhou CNP this AM. a. 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 Pt states that her PCP has made a referral for her to see Dr. Curiel. b. Dr. Curiel referral: Pt had heard from Dr. Curiel's yesterday afternoon but has not been available when Dr. Curiel's office has been open to contact them about scheduling an appointment. Pt states she is going to call their office and is looking forward to seeking his second opinion. c. Pt reports that she has an umbilical hernia and that her PCP is referring her to Dr. Hawthorne with [facility] for possible surgical intervention. When asked if Dr. Hawthorne was in-network with her [employer] insurance, pt states Dr. Hawthorne removed her gallbladder so she believes that she is. Pt states she had her gallbladder removed in March, at [facility]. Dr. Hawthorne was with [facility] at that time and remains with [facility] currently. Dr. Guerra referral: Pt states she did receive a call back from Dr. Guerra's office but has not yet returned their call. This RN CM explained to pt that Dr. Guerra has agreed to review her medical record without an appointment and provide an opinion without charge. Also explained that the records sent by Dr. Mendoza's office on 08/28 were not received and they resent the records last week. Encouraged pt to return Dr. Guerra's call to clarify what they may have been contacting her for. Pt is willing to call them back in follow-up. Pt was experiencing discomfort associated with the paracentesis procedure. Pt denies any further questions, concerns, or needs at this time. No further discussion had as pt was uncomfortable. Will follow-up with patient during next paracentesis to evaluation responses from Dr. Guerra, Dr. Curiel, and Dr. Hawthorne referrals. Gabbie Epstein RN CM
== END ==
PROVIDERS: PCP Nurse Practitioner Primary Care; Referring Provider Internal Medicine Gastroenterology; Visit Provider Internal Medicine Gastroenterology
DX: R18.8 Other ascites (principal); K74.60 Unspecified cirrhosis of liver
CPT/HCPCS: 49083

== ENCOUNTER → 2020-10-24 14:34 | Outpatient (CLI) | payer OTHER, SELFPAY ==
--- NOTE | 2020-10-24 14:36 | US_ITS ---
PROCEDURE: Ultrasound guided paracentesis. DATE OF EXAMINATION: 10/24/2020. INDICATION: Female, 55 years old. Ascites. PHYSICIAN: Fab Hankins M.D. TECHNIQUE: The risks, benefits, and alternatives to the procedure were explained to the patient. The specific risks of bleeding, infection, and damage to bowel were detailed and accepted. Witnessed informed consent was obtained. The abdomen was ultrasonographically surveyed. An appropriate pocket of fluid was identified at the right lower quadrant. The skin were cleaned and prepped in the usual sterile fashion. Using ultrasound guidance, the peritoneal cavity was accessed with a 5-Mauritian paracentesis needle/catheter system. The trocar was removed. A total of 6350 ml of syd-colored fluid were removed from the peritoneal cavity. The catheter was removed and a sterile dressing was applied. The procedure was well tolerated. US/Paracentesis with US IMPRESSION: Ultrasound guided paracentesis. Electronically Signed: Fab Hankins, at 15:38 EST , Service support ,
[2020-10-24 14:51] VITALS: BP 108/52; BP 111/59; BP 117/60; PULSE 103; PULSE 89; PULSE 95; RESP 18; TEMP 36.6; O2SAT 100
== END ==
PROVIDERS: PCP Nurse Practitioner Primary Care; Referring Provider Internal Medicine Gastroenterology; Visit Provider Internal Medicine Gastroenterology
DX: R18.8 Other ascites (principal); K74.60 Unspecified cirrhosis of liver
CPT/HCPCS: 49083

== ENCOUNTER → 2020-11-02 14:29 | Outpatient (CLI) | payer OTHER, SELFPAY ==
--- NOTE | 2020-11-02 14:30 | US_ITS ---
PROCEDURE: Ultrasound guided paracentesis. DATE OF EXAMINATION: 11/02/2020. INDICATION: Female, 55 years old. Ascites. PHYSICIAN: Fab Hankins M.D. TECHNIQUE: The risks, benefits, and alternatives to the procedure were explained to the patient. The specific risks of bleeding, infection, and damage to bowel were detailed and accepted. Witnessed informed consent was obtained. The abdomen was ultrasonographically surveyed. An appropriate pocket of fluid was identified at the right lower quadrant. The skin were cleaned and prepped in the usual sterile fashion. Using ultrasound guidance, the peritoneal cavity was accessed with a 5-Maltese paracentesis needle/catheter system. The trocar was removed. A total of 1400 ml of syd-colored fluid were removed from the peritoneal cavity. The catheter was removed and a sterile dressing was applied. The procedure was well tolerated. US/Paracentesis with US IMPRESSION: Ultrasound guided paracentesis. Electronically Signed: Fab Hankins MD at 15:45 EST , Service support ,
[2020-11-02 14:49] VITALS: BP 114/65; BP 118/69; PULSE 96; RESP 16; RESP 18; TEMP 36.7; O2SAT 100; O2SAT 97
--- NOTE | 2020-11-02 15:22 | CASEMGMT ---
RN Care Coordination Follow-up: This RN CM met with pt at the bedside in the Radiology Ultrasound room during paracentesis procedure. The patient provided the following update on her referrals: She met with a gauge maker apprentice at [facility] (Dr. Samuel). She is undergoing a work-up/evaluation for a TIPS procedure. This is being evaluated first and a transplant may be considered at a later date. This evaluation is to include an MRI, liver ultrasound, FibroScan, and an EGD. This is to take place on 11/21 and 12/01. She then has a follow-up appointment with Dr. Samuel on 12/27. Pt states Dr. Hawthorne is not going to move forward with the hernia repair at this time. Pt explained that the hernia may be repaired during the TIPS if this procedure occurs. Pt denies any concerns related to insurance coverage of care at [facility]. Pt was unable to tolerate complete drainage during paracentesis today and requested to be knocked out for the procedure. Explained that this was not an option for this procedure. Pt relayed that she had taken Xanax and Valium in the past prior to procedure to reduce her anxiety. She would like to try the Xanax again. This RN CM contacted Areli Zhou's office and received a non-identifying voicemail. A message was left asking for a return call regarding one of Areli Zhou's patients. Pt denies any further questions, concerns, or needs at this time. Will follow-up on response from PCP re: Xanax. Gabbie Epstein RN CM
--- NOTE | 2020-11-08 10:57 | CASEMGMT ---
Addendum entered by Francesco Man 11/08/20 15:20: Call received back from Crystal @ Areli Zhou's office. She states they were able to reach pt and she is agreeable to trying Hydroxyzine prior to paracentesis appts and they will call in a script for her. Pt is aware. Addendum entered by Francesco Man 11/08/20 11:41: Spoke w/Crystal @ Areli Zhou's ([employer]) office re: pt interest in Xanax prior to paracentesis procedures. Per Areli Rojas states prefers pt to take Hydroxyzine instead, as she feels this would be safer for pt. Crystal states they have left a message with pt and are awaiting a response from her to see if she is agreeable to this prior to them sending a prescription to her pharmacy. Crystal inquired when pt's next paracentesis is scheduled for and she was made aware it is for 11/14. She states she will attempt to reach pt again re: this and will notify NICOLAS LANDIS once decision is made. Original Note: NICOLAS LANDIS Wire Tester f/u: Attempted to contact pt for f/u re: Xanax. No answer and received a non-identifying voicemail. VM message not left at this time. NICOLAS LANDIS field care coordinator to f/u at a later time. Alexus ESCOTO RN, CM
== END ==
PROVIDERS: PCP Nurse Practitioner Primary Care; Referring Provider Internal Medicine Gastroenterology; Visit Provider Internal Medicine Gastroenterology
DX: R18.8 Other ascites (principal); K74.60 Unspecified cirrhosis of liver
CPT/HCPCS: 49083

== ENCOUNTER → 2020-11-14 14:40 | Outpatient (CLI) | payer OTHER, SELFPAY ==
--- NOTE | 2020-11-14 14:42 | US_ITS ---
PROCEDURE: Ultrasound guided paracentesis. DATE OF EXAMINATION: 11/14/2020. INDICATION: Female, 55 years old. Ascites. PHYSICIAN: Fab Hankins M.D. TECHNIQUE: The risks, benefits, and alternatives to the procedure were explained to the patient. The specific risks of bleeding, infection, and damage to bowel were detailed and accepted. Witnessed informed consent was obtained. The abdomen was ultrasonographically surveyed. An appropriate pocket of fluid was identified at the right lower quadrant. The skin were cleaned and prepped in the usual sterile fashion. Using ultrasound guidance, the peritoneal cavity was accessed with a 5-Bhutanese paracentesis needle/catheter system. The trocar was removed. A total of 6150 ml of syd-colored fluid were removed from the peritoneal cavity. The catheter was removed and a sterile dressing was applied. The procedure was well tolerated. US/Paracentesis with US IMPRESSION: Ultrasound guided paracentesis. Electronically Signed: Fab Hankins MD at 15:50 EST , Service support ,
[2020-11-14 14:48] VITALS: BP 105/58; BP 106/57; BP 115/64; BP 126/70; PULSE 104; PULSE 111; PULSE 113; RESP 18; TEMP 36.7; O2SAT 100
--- NOTE | 2020-11-14 19:28 | CASEMGMT ---
RN Care Coordination Follow-up: Late entry for 1129: Phone called received from pt this AM stating she did receive a prescription from her PCP for hydroxyzine to take prior to her paracentesis. She states she trialed this on Friday night and then slept all day on Friday. She did not want to take this for today's paracentesis and risk sleeping the following day as she needs to work. Pt states her PCP's office did not want to prescribe the Xanax that she had requested. Explained to pt that these medications are metabolized by the liver and due to her liver disease she is not and would not clear the medication which is why she had prolonged sleepiness from the hydroxyzine. Pt expressed understanding. This RN CM left message with pt's PCP asked for an alternative medication prior to today's procedure. Return call received and Lorazepam was offered an alternative. This was to be called to pt's pharmacy. This RN CM contacted pt and left a message on her voicemail informing her of the prescription so she could obtain prior to today's procedure. Pt states she has been doing well and has her upcoming appointments starting on Friday to be evaluated at the [facility] for a TIPS procedure. She states she definitely is in need of a paracentesis today. Pt denied any further needs or concerns at this time. Gabbie Epstein, NICOLAS CM
== END ==
PROVIDERS: PCP Nurse Practitioner Primary Care; Referring Provider Internal Medicine Gastroenterology; Visit Provider Internal Medicine Gastroenterology
DX: R18.8 Other ascites (principal); K74.60 Unspecified cirrhosis of liver
CPT/HCPCS: 49083

== ENCOUNTER → 2020-11-28 14:31 | Outpatient (CLI) | payer OTHER, SELFPAY ==
--- NOTE | 2020-11-28 14:33 | US_ITS ---
PROCEDURE: Ultrasound guided paracentesis. DATE OF EXAMINATION: 11/28/2020.. INDICATION: Female, 55 years old. Ascites. PHYSICIAN: Fab Hankins M.D. TECHNIQUE: The risks, benefits, and alternatives to the procedure were explained to the patient. The specific risks of bleeding, infection, and damage to bowel were detailed and accepted. Witnessed informed consent was obtained. The abdomen was ultrasonographically surveyed. An appropriate pocket of fluid was identified at the right lower quadrant. The skin were cleaned and prepped in the usual sterile fashion. Using ultrasound guidance, the peritoneal cavity was accessed with a 5-Bengali paracentesis needle/catheter system. The trocar was removed. A total of 7450 ml of syd-colored fluid were removed from the peritoneal cavity. The catheter was removed and a sterile dressing was applied. The procedure was well tolerated. US/Paracentesis with US IMPRESSION: Ultrasound guided paracentesis. Electronically Signed: Fab Hankins MD at 15:27 EST , Service support ,
[2020-11-28 14:43] VITALS: BP 107/68; BP 108/64; BP 93/55; BP 98/55; BP 98/65; PULSE 100; PULSE 102; PULSE 90; PULSE 97; RESP 16; RESP 18; TEMP 36.9; O2SAT 100; O2SAT 97; O2SAT 98; O2SAT 99
--- NOTE | 2020-11-28 14:56 | NURSING ---
Pt is in the midst of multiple appointments with [facility]. Pt has echo scheduled at [facility] on 11/29. Labs and EGD on Friday 12/01. According to pt if all goes well she will go forward with the TIPS procedure. Dr. Khushi Leal is a [facility] Interventional Radiologist who is planned to do the procedure. Dr. yLnda Chaves is the Office Nurse Practitioner/Farmworker [employer] she is consulting as a second opinion.
== END ==
PROVIDERS: PCP Nurse Practitioner Primary Care; Referring Provider Internal Medicine Gastroenterology; Visit Provider Internal Medicine Gastroenterology
DX: R18.8 Other ascites (principal); K74.60 Unspecified cirrhosis of liver
CPT/HCPCS: 49083

== ENCOUNTER → 2020-12-07 14:39 | Outpatient (CLI) | payer OTHER, SELFPAY ==
--- NOTE | 2020-12-07 14:41 | US_ITS ---
PROCEDURE: Ultrasound guided paracentesis. DATE OF EXAMINATION: 12/07/2020. INDICATION: Female, 55 years old. Ascites. PHYSICIAN: Fab Hankins M.D. TECHNIQUE: The risks, benefits, and alternatives to the procedure were explained to the patient. The specific risks of bleeding, infection, and damage to bowel were detailed and accepted. Witnessed informed consent was obtained. The abdomen was ultrasonographically surveyed. An appropriate pocket of fluid was identified at the right lower quadrant. The skin were cleaned and prepped in the usual sterile fashion. Using ultrasound guidance, the peritoneal cavity was accessed with a 5-Serbian paracentesis needle/catheter system. The trocar was removed. A total of 4500 ml of syd-colored fluid were removed from the peritoneal cavity. The catheter was removed and a sterile dressing was applied. The procedure was well tolerated. US/Paracentesis with US IMPRESSION: Ultrasound guided paracentesis. Electronically Signed: Fab Hankins MD at 15:42 EST , Service support ,
[2020-12-07 15:02] VITALS: BP 100/60; BP 112/70; BP 99/58; PULSE 101; PULSE 94; PULSE 95; RESP 14; RESP 16; TEMP 36.8; O2SAT 98; O2SAT 99
--- NOTE | 2020-12-07 15:23 | CASEMGMT ---
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 Pt undergoing paracentesis and open to visit. Pt states she has completed the work-up at [facility] for the TIPS procedure evaluation. She spoke with [facility] on Friday and was told they were awaiting the results of blood work to make their final decision. Pt states she has not heard further but plans to call them tomorrow in follow-up. Pt is anxious to complete the process. Pt states she underwent an EGD as a part of the w/u and they banded two varices. Pt desires to have her umbilical hernia repaired if they do not complete the TIPS procedure. States if she qualifies, [facility] plans to complete both procedures at the same time. Pt does have a follow-up appointment on December 27 at [facility]. She does not have a follow-up with her PCP scheduled at this time. Pt states she did obtain the lorazepam. She tried one tablet and it was ineffective at a previous visit. States she tried two tablets today and does not feel it has been effective. Pt was tolerating the procedure well in my presence today but was experiencing pain intermittently depending on placement of the catheter. Based on previous conversations with PCP's office, there were not other medication alternatives available due to her liver disease. Pt states she received a bill from [facility] that was stated to be out of network with her insurance. She had spoken with [employer] and they were going to discuss it with her insurance company since [facility] is in network. She is awaiting a response from them. Pt denies any further needs at this time. Will continue to monitor and assist as needed. Gabbie Epstein RN CM
--- NOTE | 2020-12-14 16:31 | CASEMGMT ---
RN Care Coordination Follow-up: Phone call placed to pt to follow-up on TIPS evaluation results and paracentesis orders going forward. Pt states she did receive notice that she was approved for the TIPS procedure and she is now awaiting a call from the surgeon to notify her of the date this will occur. She has a follow-up appointment with Dr. Cox ([facility] Hepatology) on December 27. She is aware that she has paracenteses scheduled for 12/19 and 12/28. Explained to pt that her current paracentesis order will on the and we will need a new order prior to 12/28. Pt states she will request this when she attends her appointment and will ask them to fax it to [facility] radiology. Fax number provided to pt. Pt states they will be performing a paracentesis prior to her TIPS procedure. Pt states she will keep us informed on when this is planned. Pt was very upbeat and positive regarding being approved for the TIPS procedure. She stated she is excited and anxious to follow through. Will continue to assist as needed. Gabbie Epstein RN CM
== END ==
PROVIDERS: PCP Nurse Practitioner Primary Care; Referring Provider Internal Medicine Gastroenterology; Visit Provider Internal Medicine Gastroenterology
DX: R18.8 Other ascites (principal); K74.60 Unspecified cirrhosis of liver
CPT/HCPCS: 49083

== ENCOUNTER → 2020-12-19 14:35 | Outpatient (CLI) | payer OTHER, SELFPAY ==
--- NOTE | 2020-12-19 14:36 | US_ITS ---
PROCEDURE: Ultrasound guided paracentesis. DATE OF EXAMINATION: 12/19/2020. INDICATION: Female, 55 years old. Ascites. PHYSICIAN: Fab Hankins M.D. TECHNIQUE: The risks, benefits, and alternatives to the procedure were explained to the patient. The specific risks of bleeding, infection, and damage to bowel were detailed and accepted. Witnessed informed consent was obtained. The abdomen was ultrasonographically surveyed. An appropriate pocket of fluid was identified at the right lower quadrant. The skin were cleaned and prepped in the usual sterile fashion. Using ultrasound guidance, the peritoneal cavity was accessed with a 5-St Lucian paracentesis needle/catheter system. The trocar was removed. A total of 4750 ml of syd-colored fluid were removed from the peritoneal cavity. The catheter was removed and a sterile dressing was applied. The procedure was well tolerated. US/Paracentesis with US IMPRESSION: Ultrasound guided paracentesis. Electronically Signed: Fab Hankins MD at 15:41 EST , Service support ,
[2020-12-19 14:55] VITALS: BP 100/42; BP 105/49; PULSE 100; PULSE 102; RESP 14; RESP 16; TEMP 36.6; O2SAT 100
== END ==
PROVIDERS: PCP Nurse Practitioner Primary Care; Referring Provider Internal Medicine Gastroenterology; Visit Provider Internal Medicine Gastroenterology
DX: R18.8 Other ascites (principal); K74.60 Unspecified cirrhosis of liver
CPT/HCPCS: 49083

== ENCOUNTER → 2020-12-28 14:40 | Outpatient (CLI) | payer OTHER, SELFPAY ==
--- NOTE | 2020-12-22 13:55 | CASEMGMT ---
This NICOLAS LANDIS contacted Dr. Cox's office on this date to request an order for a paracentesis which is scheduled for 12/28/20. When obtained, this order will be faxed to [facility] radiology department fax [phone]. It was noted that there is an order in the [facility] system for the patient to undergo a paracentesis at [facility] one to two days prior to her TIPS procedure. Gabbie Epstein RN CM
--- NOTE | 2020-12-28 14:42 | US_ITS ---
PROCEDURE: ULTRASOUND GUIDED PARACENTESIS CLINICAL HISTORY: Female, 55 years old. ASCITES CONSENT: The risks, benefits and alternatives to the procedure were explained to the patient, and the patient agreed to the procedure and signed the consent. 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 PROCEDURE/TECHNIQUE: The risks, benefits, and alternatives to the procedure were explained to patient, and the patient agreed to the procedure and signed a consent form for the procedure. TECHNIQUE: Under the ultrasound guidance using sterile technique and after infiltration of the skin and subcutaneous soft tissues with 10 mL of lidocaine 1% a 5 Chinese drainage catheter is introduced in the lower part of the abdomen. 5400 mL of fluid were removed sample sent to lab for evaluation. The patient tolerated the procedure there was no immediate complication. FINDINGS: FLUID PRE-PROCEDURE There is posterior enhancement. The findings appear anechoic. There is no loculation. FLUID POST-PROCEDURE Amount of fluid drained: 5400 ml. US/Paracentesis with US IMPRESSION: Successful ultrasound-guided paracentesis. Electronically Signed: Rigo Ann MD at 16:18 EST Tel , Service support ,
[2020-12-28 15:03] VITALS: BP 106/61; BP 108/66; BP 110/62; PULSE 89; PULSE 93; RESP 16; RESP 18; TEMP 36.9; O2SAT 100
== END ==
PROVIDERS: PCP Nurse Practitioner Primary Care
DX: R18.8 Other ascites (principal); K74.60 Unspecified cirrhosis of liver; K75.81 Nonalcoholic steatohepatitis (NASH)
CPT/HCPCS: 49083